=== PATIENT | male | born 1940 | race Caucasian/White ===

== ENCOUNTER 2016-09-10 07:15 | Day surgery (SDC) | payer MEDICARE, BC ==
[~2016-09-10] VITALS: Ht 181.6 cm; Wt 74.8 kg
[~2016-09-10 07:15] MED LIST: FERROUS SULFAT325 M1 PO
== END 2016-09-10 09:20 | disposition short-term general hospital (02) ==
LOC: SURGOP 07:15
PROC: 0DBE8ZZ Excision of Large Intestine, Via Natural or Artificial Opening Endoscopic (ICD-10-PCS; principal; 2016-09-10)
PROC: 0DBE8ZZ Excision of Large Intestine, Via Natural or Artificial Opening Endoscopic (ICD-10-PCS; 2016-09-10)
DX: Z12.11 Encounter for screening for malignant neoplasm of colon (principal); D12.6 Benign neoplasm of colon, unspecified; Z85.038 Personal history of other malignant neoplasm of large intestine; Z87.891 Personal history of nicotine dependence; Z79.899 Other long term (current) drug therapy; Z90.49 Acquired absence of other specified parts of digestive tract

== ENCOUNTER → 2016-09-14 | Outpatient (CLI) | payer MEDICARE, BC | END | disposition short-term general hospital (02) | LOC: CLONCO 09:37 | DX: C18.9 Malignant neoplasm of colon, unspecified (principal) ==